=== PATIENT | female | born 1940 ===

== ENCOUNTER 2021-04-17 10:45 | Outpatient (RCR) | payer MEDICARE, SELFPAY ==
[2021-01-17 08:00] VITALS: BMI 39.6
[2021-01-17 08:08] VITALS: BMI 39.6
== END 2021-04-17 23:59 | disposition home or self-care (01) ==
LOC: ANHDMC 10:45
PROVIDERS: PCP Internal Medicine; Visit Provider Internal Medicine
DX: E11.9 Type 2 diabetes mellitus without complications (principal); Z71.3 Dietary counseling and surveillance; Z71.89 Other specified counseling
CPT/HCPCS: 97802; G0108

== ENCOUNTER 2021-07-11 11:30 | Outpatient (RCR) | payer MEDICARE, SELFPAY ==
[2021-04-25 09:36] VITALS: BMI 38.9
[2021-04-25 09:38] VITALS: BMI 38.9
== END 2021-07-11 12:36 | disposition home or self-care (01) ==
LOC: ANHDMC 11:30
PROVIDERS: PCP Internal Medicine; Visit Provider Internal Medicine
DX: E11.9 Type 2 diabetes mellitus without complications (principal); Z71.3 Dietary counseling and surveillance; Z71.89 Other specified counseling
CPT/HCPCS: 97803; G0108

== ENCOUNTER 2023-02-11 14:35 | Observation (INO) | payer MEDICARE, SELFPAY ==
--- NOTE | ~2023-02-11 | XR_ITS ---
EXAMINATION: XR chest 1V portable INDICATION: Weakness TECHNIQUE: Portable AP chest at 1520 hours COMPARISON: None available FINDINGS: There are patchy opacities throughout all lung zones. No pleural effusion or pneumothorax. The cardiomediastinal silhouette is normal. There is osteoarthritis of the shoulders. IMPRESSION: 1. Patchy bilateral airspace opacities, consistent with atelectasis versus pneumonia. Reviewed, dictated and finalized at location B. IMPRESSION: 1. Patchy bilateral airspace opacities, consistent with atelectasis versus pneu monia.
--- NOTE | ~2023-02-11 | CT_ITS ---
EXAMINATION: CT brain wo con INDICATION: Bilateral lower limb weakness COMPARISON: None TECHNIQUE: Standard unenhanced head CT. The dose-length product (DLP) was 605.33 mGy-cm. The mA was a djusted according to patient size. Iterative reconstruction technique was employed. FINDINGS: There is no acute intraparenchymal hemorrhage. No evidence of mass lesion. No evidence of a cute infarction. 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 Areas of prior infarction are also note d in the left frontal and left occipital lobes in the right temporal lobe. There is mild periventricu lar and subcortical hypodensity probably related to small vessel ischemic disease. There is mild prom inence of the sulci and ventricles related to cerebral atrophy. Intracranial calcified cerebral ather osclerosis is noted. There are no extra-axial collections. There is no mass effect or midline shift. Changes in the globes are likely from ocular lens surgery. The visualized sinuses and mastoid air bao ls are well aerated. IMPRESSION: 1. Multiple areas of prior infarction without acute intracranial abnormality. 2. Age related findings. Reviewed, dictated and finalized at location B.
[2023-02-11 14:40] VITALS: BP 168/85; PULSE 68; RESP 18; TEMP 36.6; O2SAT 94
--- NOTE | 2023-02-11 14:42 | ECG_ITS ---
Measurements Intervals [place] Rate: 66 P: 70 TN: 177 QRS: -50 QRSD: 113 T: 74 QT: 429 QTc: 450 Interpretive Statements SINUS RHYTHM LEFT ANTERIOR FASCICULAR BLOCK [QRS AXIS <= -45, QR IN I, RS IN II] LEFT VENTRICULAR HYPERTROPHY AND ST-T CHANGE [VOLTAGE CRITERIA PLUS ST/T ABNORMALITY] ANTEROSEPTAL MYOCARDIAL INFARCTION , OF INDETERMINATE AGE [40+ ms Q WAVE IN V1-V4] ABNORMAL ECG NO PREVIOUS ECG AVAILABLE FOR COMPARISON Electronically Signed On 02-12-2023 14:32:11 CDT by Golden Vidal M.D.
[2023-02-11 14:56] LABS: Basophils Absolute Auto 0.1 K/mm3 (0.0-0.1); Basophils Percent Auto 0.6 % (0.2-1.2); Eosinophils Absolute Auto 0.2 K/mm3 (0-0.3); Eosinophils Percent Auto 1.4 % (0-4.4); Hematocrit 53.4 % (37.0-47.0); Hemoglobin 17.5 g/dL (12.0-15.0); Immature Granulocyte Absolute 0.06 K/mm3 (0.00-0.031); Immature Granulocyte Percent A 0.4 % (0-0.5); Lymphocytes Absolute Auto 1.63 K/mm3 (0.9-3.2); Lymphocytes Percent Auto 11.8 % (18.3-44.2); Mean Corpuscular HGB Conc 32.8 g/dl (32-36); Mean Corpuscular Hemoglobin 30.4 pg (26-34); Mean Corpuscular Volume 92.9 fl (80-100); Mean Platelet Volume 9.9 fl (7.4-10.4); Monocytes Absolute Auto 0.9 K/mm3 (0.1-0.6); Monocytes Percent Auto 6.1 % (2.6-8.5); Neutrophils Absolute Auto 11.1 K/mm3 (1.3-6.7); Neutrophils Percent Auto 79.7 % (45.5-73.1); Platelet Count Result 295 k/mm3 (150-375); Red Blood Count 5.75 M/mm3 (4.2-5.4); Red Cell Distribution Width 13.9 % (11.5-14.5); White Blood Count 13.9 K/mm3 (4.5-10.0)
[2023-02-11 15:05] LABS: Alanine Aminotransferase 20 U/L (6-35); Albumin Level 4.3 g/dL (3.5-5.1); Alkaline Phosphatase 135 U/L (38-126); Anion Gap 8 mmol/L (8-16); Aspartate Amino Transferase 21 U/L (14-36); Bilirubin,Total 0.8 mg/dL (0.2-1.3); Blood Urea Nitrogen 29 mg/dL (7-17); Calcium 9.2 mg/dL (8.4-10.2); Carbon Dioxide 29 mmol/L (22-30); Chloride 101 mmol/L (98-107); Estimated CRCL calculation 35 ml/min; Estimated Glomerular Filt Rate 39; Glucose 353 mg/dL (65-110); Potassium 4.2 mmol/L (3.4-5.0); Sodium 138 mmol/L (137-145)
--- NOTE | 2023-02-11 15:43 | ED.WEAKNESS ---
HPI - Weakness General Chief complaint: Weakness Stated complaint: weakness Time Seen by Provider: 02/11/23 15:22 History of Present Illness HPI Narrative: Patient is an 82-year-old female with a history of hypertension, diabetes presenting with weakness. Patient states that for the last several days she has been weak in both of her legs. States that she is able to stand up with them both of her legs will give out. States that she has had some intermittent left leg numbness as well. Patient lives at home alone and has now had multiple falls. She does not think she has struck in her head or lost consciousness. She complains of bilateral knee pain. She denies difficulty speaking, headaches, vision changes, chest pain, shortness of breath, abdominal pain, nausea or vomiting, diarrhea, dysuria. States that she has had difficulty swallowing fluids for the last week. Related Data Home Medications Medication Instructions Recorded Confirmed dapagliflozin 5 mg tablet (Farxiga) 5 mg PO DAILY 02/11/23 02/11/23 glimepiride 1 mg tablet 1 mg PO DAILY 02/11/23 02/11/23 insulin degludec 100 unit/mL (3 30 unit subcut HS 02/11/23 02/11/23 mL) subcutaneous pen (Tresiba FlexTouch U-100 insulin) insulin lispro 100 unit/mL 10 unit subcut TIDWMEAL 02/11/23 02/11/23 subcutaneous pen (Humalog KwikPen (U-100) Insulin) lisinopril 20 mg tablet 20 mg PO BID 02/11/23 02/12/23 nebivolol 10 mg tablet 10 mg PO DAILY 02/11/23 02/11/23 semaglutide 0.25 mg or 0.5 mg (2 0.25 mg subcut ONCE 02/11/23 02/11/23 mg/1.5 mL) subcutaneous pen injector (Ozempic) simvastatin 20 mg tablet 20 mg PO HS 02/11/23 02/11/23 Allergies Allergy/AdvReac Type Severity Reaction Status Date / Time amlodipine Allergy Unknown Verified 02/11/23 18:15 Review of Systems Review of Systems: All systems reviewed & are unremarkable except as noted in HPI and below [facility] Past Medical History Medical History (Updated 02/14/23 @ 21:51 by Eliz Brand MD) Diabetes mellitus HTN (hypertension), benign Social History Social History Smoking status: Never smoker Second hand tobacco smoke exposure: No Alcohol intake: never Substance use: never Substance use type: does not use Lack of Transportation: No Lack of Food: Never True Current Housing: I Have Housing Concerned About Future Housing: No Difficulty Paying Gas/Electric Bills: No Difficulty Paying for Meds: No Currently Unemployed: No Education: High School Diploma/GED Difficulty w/ Childcare or Family Care: No Spiritual care concerns: No Exam Narrative: GENERAL: Well-appearing, well-nourished, and in no acute distress. HEAD: Normocephalic, atraumatic. EYES: PERRLA and EOMI. ENT: Nares clear, no rhinorrhea or epistaxis. Mucous membranes moist. NECK: Supple. No midline tenderness of cervical, thoracic, or lumbar spine CHEST: Clear to auscultation. No respiratory distress. HEART: Regular rate and rhythm. No murmur heard. Normal peripheral pulses. ABDOMEN: Soft, nontender, nondistended EXTREMITIES: Normal range of motion. No edema. SKIN: Warm, dry, no rash. Superficial abrasions bilateral knees NEURO: No focal deficits. Alert and oriented x3. 5/5 strength in all extremities, no sensory deficits, no facial droop PSYCH: Normal mood and affect. Course Vital Signs Vital signs: Vital Signs Temperature 97.9 F 02/11/23 14:40 Pulse Rate 68 02/11/23 14:40 Respiratory Rate 18 02/11/23 14:40 Blood Pressure 168/85 H 02/11/23 14:40 Pulse Oximetry 94 02/11/23 14:40 Oxygen Delivery Room Air 02/11/23 14:40 Temperature 97.2 F L 02/13/23 14:00 Pulse Rate 70 02/13/23 14:00 Respiratory Rate 18 02/13/23 14:00 Blood Pressure 142/67 H 02/13/23 14:00 Pulse Oximetry 95 02/13/23 14:00 Oxygen Delivery Room Air 02/13/23 08:00 MDM - Weakness MDM Narrative Medical decision making
[2023-02-11 17:36] LABS: Appearance Urine Cloudy (Clear); Bacteria Urine 4+ /hpf; Bilirubin Urine Negative (Negative); Blood Urine Trace (Negative); Color Urine Yellow (Yellow); Glucose Urine UA 3+ mg/dL (Negative); Ketones Urine Negative (Negative); Leukocyte Esterase Ur 1+ LEU/UL (Negative); Need Manual Microscopic Reviewed; Nitrate Urine Negative (Negative); Protein Urine 1+ mg/dL (Negative); RBC Urine 0-2 /hpf (0-2); Specific Grav Ur 1.029 (1.001-1.035); Squamous Epithelial Cell Urine None seen /hpf (Few); Urobilinogen Urine 0.2 mg/dL (<2.0); WBC Urine >100 /hpf
[2023-02-11 17:37] LABS: Add Urine Microscopic? YES
[2023-02-11 17:53] LABS: NT Pro B Type Natriuretic Pept 1090 pg/mL (19.9-100); Troponin I 0.014 ng/mL (0.000-0.034)
[2023-02-11 18:05] LABS: Troponin I < 0.012 ng/mL (0.000-0.034)
[2023-02-11 18:20] LABS: Influenza A QL RT-PCR Negative (Negative); Influenza B QL RT-PCR Negative (Negative); SARS-CoV-2 RNA PCR Negative (Negative)
[2023-02-11 20:42] VITALS: BP 115/99; PULSE 63; RESP 18; O2SAT 96
--- NOTE | 2023-02-11 20:42 | PM.IMHP ---
H&P: HPI History of Present Illness Date/Time: 02/11/23 20:42 Chief Complaint: Generalized weakness Narrative: This is an 82-year-old female with past medical history significant for type 2 diabetes mellitus, insulin dependent, hypertension, dyslipidemia. Patient was brought to the emergency room due to generalized weakness patient denies any fevers, rigors, chills, nausea, vomiting, abdominal pain, pain or burning with urination no cough, no sputum production, no night sweats. Preliminary workup was significant for urinalysis more than 100 wbc's per high-power field, WBC 67204. EXAMINATION: XR chest 1V portable INDICATION: Weakness TECHNIQUE: Portable AP chest at 1520 hours COMPARISON: None available FINDINGS: There are patchy opacities throughout all lung zones. No pleural effusion or pneumothorax. The cardiomediastinal silhouette is normal. There is osteoarthritis of the shoulders. IMPRESSION: 1. Patchy bilateral airspace opacities, consistent with atelectasis versus pneumonia. EXAMINATION: CT brain wo con ? INDICATION: Bilateral lower limb weakness ? COMPARISON: None TECHNIQUE: Standard unenhanced head CT. The dose-length product (DLP) was 605.33 mGy-cm. The mA was adjusted according to patient size. Iterative reconstruction technique was employed. ? FINDINGS: There is no acute intraparenchymal hemorrhage. No evidence of mass lesion. No evidence of acute infarction. 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 Areas of prior infarction are also noted in the left frontal and left occipital lobes in the right temporal lobe. There is mild periventricular and subcortical hypodensity probably related to small vessel ischemic disease. There is mild prominence of the sulci and ventricles related to cerebral atrophy. Intracranial calcified cerebral atherosclerosis is noted. There are no extra-axial collections. There is no mass effect or midline shift. Changes in the globes are likely from ocular lens surgery. The visualized sinuses and mastoid air cells are well aerated. IMPRESSION: 1. Multiple areas of prior infarction without acute intracranial abnormality. 2. Age related findings. Patient has been admitted for further evaluation management and treatment. Review of Systems Review of Systems: Generalized weakness Constitutional: Constitutional: Denies chills, Reports fatigue, Denies fever(s), Reports lethargy, Denies malaise, Denies night sweats, Denies poor appetite and Reports weakness Eyes: Eyes: Denies change in vision ENT: Denies dysphagia and Denies odynophagia Cardiovascular: Cardiovascular: Denies chest pain, Denies leg edema, Denies radiating jaw, neck or arm pain and Denies palpitations Respiratory: Respiratory: Denies chest congestion, Denies cough, Denies excessive phlegm production and Denies dyspnea Gastrointestinal: Gastrointestinal: Denies abdominal pain, Denies dyspepsia, Denies diarrhea, Denies nausea and Denies vomiting Genitourinary: Genitourinary: Denies dysuria Musculoskeletal: Musculoskeletal: Denies back pain, Denies myalgias, Denies joint swelling and Reports muscle weakness Integumentary/Breasts: Skin/Breast: Denies rash Neurologic: Denies syncope, Denies focal weakness and Denies Sensory deficit (Neuro) Psychiatric: Psychiatric: Reports no additional psychiatric complaints and Reports as per HPI Endocrine: Endocrine: Denies cold intolerance, Denies fatigue, Denies flushing, Denies heat intolerance, Denies polyphagia, Denies polydipsia and Denies palpitations Hematologic/Lymphatic: Hematologic/Lymphatic: Reports no additional hematologic/lymphatic complaints and Reports as per HPI Allergic/Immunologic: Allergic/Immunologic: Reports no additional allergic/immunologic complaints and Reports as per HPI [facility] Social History Social History Smoking status: Never smoker Second hand tobacco smoke exposure: No Alcohol intake: never Subst
[2023-02-11 21:20] VITALS: BP 156/73; PULSE 62; RESP 14; TEMP 36.2; O2SAT 94; BMI 37.9
[2023-02-11 22:31] VITALS: BMI 37.8
[2023-02-11 23:15] LABS: Glucose Point of Care 353 mg/dl (65-105)
[2023-02-12] MEDS: INSULIN GLARGINE (*BKC) 100 UNITS/ML 30 UNITS SUB-Q ×2 (01:40→20:22)
[2023-02-12] MEDS: SIMVASTATIN 20 MG TABLET PO ×2 (01:41→20:21)
[2023-02-12 05:52] VITALS: BP 162/76; PULSE 63; RESP 14; TEMP 36.6; O2SAT 92
[2023-02-12 07:43] LABS: Glucose Point of Care 249 mg/dl (65-105)
[2023-02-12 08:06] VITALS: PULSE 66
[2023-02-12] MEDS: NEBIVOLOL HCL 5 MG TABLET 10 MG PO (08:06)
[2023-02-12] MEDS: INSULIN ASPART (*BKC) 100 UNITS/ML 10 UNITS SUB-Q ×3 (08:08→17:10)
[2023-02-12] MEDS: lisinopriL 20 MG TABLET PO (08:08)
[2023-02-12 11:52] LABS: Glucose Point of Care 333 mg/dl (65-105)
[2023-02-12 13:51] VITALS: BP 140/79; PULSE 67; RESP 18; TEMP 36.1; O2SAT 95
--- NOTE | 2023-02-12 15:25 | PM.IMPN ---
Progress Note: A&P Assessment and Plan (1) UTI (urinary tract infection): Code(s): N39.0 - Urinary tract infection, site not specified Status: Acute Assessment and Plan: Started on Rocephin Awake urine culture and identification (2) Generalized weakness: Code(s): R53.1 - Weakness Status: Acute Assessment and Plan: Likely secondary to urinary tract infection CT head with multiple infarcts without acute intracranial abnormality PT OT consult Add aspirin continue on statin check LDL (3) Lung infiltrate: Code(s): R91.8 - Other nonspecific abnormal finding of lung field Status: Acute Assessment and Plan: Patient started on Rocephin and Zithromax Cultures in progress Plan Type 2 diabetes on insulin monitor Accu-Cheks and adjust insulin as needed. Hypertension home medication Hyperlipidemia simvastatin DVT prophylaxis Lovenox Subjective Date/time seen: 02/12/23 15:25 Interval history: Generalized weakness lower legs. States her legs give out numbness of the leg reported recurrent fall UTI afebrile vitals stable. Doing okay. No new complaints chart reviewed Review of Systems Review of Systems: All systems reviewed & are unremarkable except as noted in HPI and below Exam Narrative: GENERAL: Well-appearing, well-nourished, and in no acute distress. HEAD: Normocephalic, atraumatic. EYES: PERRLA and EOMI. ENT: Nares clear, no rhinorrhea or epistaxis.? Mucous membranes moist. NECK: Supple.? No midline tenderness of cervical, thoracic, or lumbar spine CHEST: Clear to auscultation.? No respiratory distress. HEART: Regular rate and rhythm.? No murmur heard.? Normal peripheral pulses. ABDOMEN: Soft, nontender, nondistended EXTREMITIES: Normal range of motion.? No edema. SKIN: Warm, dry, no rash. NEURO: No focal deficits.? Alert and oriented x3. 5/5 strength in all extremities, no sensory deficits, no facial droop PSYCH: Normal mood and affect. Objective Data Vital Signs Vital Signs: Vital Signs - 24 hr 02/11/23 20:42 02/11/23 21:20 02/12/23 05:52 Temperature 97.2 F L 97.9 F Pulse Rate 63 62 63 Respiratory Rate 18 14 14 Blood Pressure 115/99 H 156/73 H 162/76 H Pulse Oximetry 96 94 92 Oxygen Delivery 02/12/23 08:06 02/12/23 10:42 02/12/23 10:20 Temperature Pulse Rate 66 Respiratory Rate Blood Pressure Pulse Oximetry Oxygen Delivery Room Air Room Air 02/12/23 08:00 02/12/23 13:51 Temperature 97.0 F L Pulse Rate 67 Respiratory Rate 18 Blood Pressure 140/79 Pulse Oximetry 95 Oxygen Delivery Room Air Intake/Output Intake/Output: Intake & Output 02/09/23 02/10/23 02/11/23 02/12/23 23:59 23:59 23:59 23:59 Intake Total 300 980 Output Total 600 Balance 300 380 Meds/Results Medications: Active Medications Generic Name Dose Route Start Last Admin Trade Name Freq PRN Reason Stop Dose Admin Dextrose 12.5 gm 02/12/23 07:32 Dextrose 50% 25 Gm/50 Ml Syringe IV PUSH PRN PRN Hypoglycemia Protocol Glucagon 1 mg 02/12/23 07:32 Glucagon For Inj 1 Mg Vial IM PRN PRN Hypoglycemia Protocol Glucose 15 gm 02/12/23 07:32 Glucose Oral Gel 15 Gm Of Glucse In 37.5 Gm Tube PO PRN PRN Hypoglycemia Protocol Dextrose 1,000 mls @ 100 mls/hr 02/12/23 07:32 Dextrose 5% 1,000 Ml IVPB PRN PRN Hypoglycemia Protocol Insulin Aspart 10 units 02/12/23 08:00 02/12/23 12:00 Insulin Aspart (*Bkc) 100 Units/Ml SUB-Q 10 units ACINSULIN YOUSUF Administration Insulin Glargine 30 units 02/11/23 23:05 02/12/23 01:40 Insulin Glargine (*Bkc) 100 Units/Ml SUB-Q 30 units HS YOUSUF Administration Lisinopril 20 mg 02/12/23 09:00 02/12/23 08:08 Lisinopril 20 Mg Tablet PO 20 mg DAILY YOUSUF Administration Nebivolol 10 mg 02/12/23 09:00 02/12/23 08:06 Nebivolol Hcl 5 Mg Tablet PO 10 mg DAILY YOUSUF Administration Simvast
[2023-02-12 16:46] LABS: Glucose Point of Care 218 mg/dl (65-105)
[2023-02-12 19:29] LABS: Hemoglobin A1C 9.4 % (<5.7)
[2023-02-12 20:53] LABS: Glucose Point of Care 261 mg/dl (65-105)
[2023-02-12 21:15] LABS: Glucose Point of Care 250 mg/dl (65-105)
[2023-02-12 21:19] VITALS: BP 152/86; PULSE 63; RESP 20; TEMP 36.3; O2SAT 94
[2023-02-13 05:38] VITALS: BP 146/67; PULSE 56; RESP 18; TEMP 36.2; O2SAT 90
[2023-02-13 06:14] LABS: Basophils Absolute Auto 0.1 K/mm3 (0.0-0.1); Basophils Percent Auto 0.7 % (0.2-1.2); Eosinophils Absolute Auto 0.5 K/mm3 (0-0.3); Eosinophils Percent Auto 4.2 % (0-4.4); Hematocrit 49.2 % (37.0-47.0); Hemoglobin 15.5 g/dL (12.0-15.0); Immature Granulocyte Absolute 0.05 K/mm3 (0.00-0.031); Immature Granulocyte Percent A 0.4 % (0-0.5); Lymphocytes Absolute Auto 2.43 K/mm3 (0.9-3.2); Lymphocytes Percent Auto 21.1 % (18.3-44.2); Mean Corpuscular HGB Conc 31.5 g/dl (32-36); Mean Corpuscular Hemoglobin 29.5 pg (26-34); Mean Corpuscular Volume 93.7 fl (80-100); Mean Platelet Volume 9.7 fl (7.4-10.4); Monocytes Absolute Auto 0.8 K/mm3 (0.1-0.6); Monocytes Percent Auto 6.9 % (2.6-8.5); Neutrophils Absolute Auto 7.7 K/mm3 (1.3-6.7); Neutrophils Percent Auto 66.7 % (45.5-73.1); Platelet Count Result 251 k/mm3 (150-375); Red Blood Count 5.25 M/mm3 (4.2-5.4); Red Cell Distribution Width 13.8 % (11.5-14.5); White Blood Count 11.5 K/mm3 (4.5-10.0)
[2023-02-13 06:22] LABS: Alanine Aminotransferase 18 U/L (6-35); Albumin Level 3.6 g/dL (3.5-5.1); Alkaline Phosphatase 107 U/L (38-126); Anion Gap 6 mmol/L (8-16); Aspartate Amino Transferase 19 U/L (14-36); Bilirubin,Total 0.8 mg/dL (0.2-1.3); Blood Urea Nitrogen 39 mg/dL (7-17); Calcium 8.3 mg/dL (8.4-10.2); Carbon Dioxide 28 mmol/L (22-30); Chloride 103 mmol/L (98-107); Cholesterol 158 mg/dL (0-200); Estimated CRCL calculation 33 ml/min; Estimated Glomerular Filt Rate 36; Glucose 162 mg/dL (65-110); HDL Direct 42 mg/dL; Magnesium 2.4 mg/dL (1.6-2.3); Sodium 137 mmol/L (137-145); Triglycerides 108 mg/dL (<150)
[2023-02-13 06:33] LABS: LDL Cholesterol Direct 83 mg/dL
[2023-02-13 07:51] LABS: Glucose Point of Care 172 mg/dl (65-105)
[2023-02-13 08:23] VITALS: PULSE 66
[2023-02-13] MEDS: ENOXAPARIN 40 MG/0.4 ML SYRINGE SUB-Q (08:23)
[2023-02-13] MEDS: lisinopriL 20 MG TABLET PO (08:23)
[2023-02-13] MEDS: NEBIVOLOL HCL 5 MG TABLET 10 MG PO (08:23)
[2023-02-13] MEDS: INSULIN ASPART (*BKC) 100 UNITS/ML 10 UNITS SUB-Q ×2 (08:25→12:15)
[2023-02-13] MEDS: ASPIRIN 81 MG ENTERIC TABLET PO (08:25)
[2023-02-13 12:15] LABS: Glucose Point of Care 205 mg/dl (65-105)
--- NOTE | 2023-02-13 13:51 | PM.DS ---
DS: Admitting Diagnosis Discharge Date 02/13/23 Admitting Diagnosis weakness DS: Discharge Diagnosis Discharge Diagnosis (1) UTI (urinary tract infection): Code(s): N39.0 - Urinary tract infection, site not specified Status: Acute (2) Generalized weakness: Code(s): R53.1 - Weakness Status: Acute (3) Lung infiltrate: Code(s): R91.8 - Other nonspecific abnormal finding of lung field Status: Acute (4) Diabetes mellitus: Code(s): E11.9 - Type 2 diabetes mellitus without complications Status: Acute (5) HTN (hypertension), benign: Code(s): I10 - Essential (primary) hypertension Status: Acute (6) Renal insufficiency: Code(s): N28.9 - Disorder of kidney and ureter, unspecified Status: Acute DS: Summary Hospital Course Reason for hospitalization: 82yo female with DM and HTN here for weakness. Please see H&P for details. Hospital Course: On admission, EKG showed normal sinus rhythm left anterior fascicular block and LVH. There was some evidence of age indeterminate anteroseptal [place] chest x-ray showed patchy bilateral airspace opacities atelectasis versus pneumonia. Head CT showed multiple areas of prior infarct without acute intracranial abnormalities. She is currently on aspirin and statin. White count was 14 K with a hemoglobin of 17. No baseline to compare but her BUN was 29 creatinine 1.3. A repeat creatinine with about the same at 1.4. It was suspected that she had chronic kidney disease. Glucose was 353. Her A1c was 9.4. LFTs were normal. Troponin was negative x2. BNP was a 1090. TSH was normal. Urinalysis was consistent with UTI. Influenza and COVID swab was negative. She was started on Rocephin and azithromycin. Urine culture did return positive but the final ID pending. Patient is clinically improved. She continued to have a nonproductive cough. Her white count trended downward. Hemoglobin improved 15. LDL 83. She worked with PT and OT. She overall did well and was able to be discharged to rehab facility on 02/13/2023. Status at Discharge Cognitive/behavioral status at discharge: Stable Time Spent with Patient Time attestation: Total time spent providing and/or coordinating discharge services: 35 minutes Time spent: Greater than 30 minutes Exam Narrative: AF 97.2 142/67 70 18 95% ra Gen - NARD Chest - clear distant BS. Nml RR CV - RRR S1/S2 Abd - Soft, NT/ND, Positive BS Ext - No pedal edema. Normal ROM to the left ankle. No redness or significant pain with ROM Neuro - Alert and oriented. Nonfocal exam. Psych - Nml mood and affect Skin - Warm and dry DS: Data Data Completed and Pending Labs on day of discharge: Labs from last 24 hours 02/13/23 02/13/23 02/13/23 12:01 07:36 05:44 WBC 11.5 H RBC 5.25 Hgb 15.5 H Hct 49.2 H MCV 93.7 MCH 29.5 MCHC 31.5 L RDW 13.8 Plt Count 251 MPV 9.7 Immature Gran % (Auto) 0.4 Neut % (Auto) 66.7 Lymph % (Auto) 21.1 [place] % (Auto) 6.9 Eos % (Auto) 4.2 Baso % (Auto) 0.7 Lymph # (Auto) 2.43 [place] # (Auto) 0.8 H Eos # (Auto) 0.5 H Baso # (Auto) 0.1 Abs Immat Gran (auto) 0.05 H Absolute Neuts (auto) 7.7 H Absolute Nucleated RBC 0.0 Nucleated RBC % 0.0 Sodium 137 Potassium 4.0 Chloride 103 Carbon Dioxide 28 Anion Gap 6 L BUN 39 H D Creatinine 1.40 H Estim Creat Clear Calc 33 Estimated GFR 36 L Glucose 162 H POC Capillary Glucose 205 H 172 H Hemoglobin A1c Calcium 8.3 L Magnesium 2.4 H Total Bilirubin 0.8 AST 19 ALT 18 Alkaline Phosphatase 107 Total Protein 7.0 Albumin 3.6 Triglycerides 108 Cholesterol 158 LDL Cholesterol Direct 83 HDL Direct 42 TSH (Reflex) 2.140 02/12/23 02/12/23 02/12/23 20:55 20:20 17:08 WBC RBC Hgb Hct MCV MCH MCHC RDW Plt Count
[2023-02-13 14:00] VITALS: BP 142/67; PULSE 70; RESP 18; TEMP 36.2; O2SAT 95
[2023-02-13 15:12] LABS: EDCOVIDSCREEN Negative (Negative)
== END 2023-02-13 15:30 ==
LOC: ANHED 16:16 → ANH3MEDSUR 02-12 13:02
PROVIDERS: Internal Medicine; Admitting Provider Internal Medicine; Emergency Provider Emergency Medicine; PCP Internal Medicine; Visit Provider Internal Medicine
DX: N39.0 Urinary tract infection, site not specified (principal); B96.20 Unspecified Escherichia coli [E. coli] as the cause of diseases classified elsewhere; R53.1 Weakness; R91.8 Other nonspecific abnormal finding of lung field; N28.9 Disorder of kidney and ureter, unspecified; R20.0 Anesthesia of skin; R29.6 Repeated falls; E11.9 Type 2 diabetes mellitus without complications; I10 Essential (primary) hypertension; Z20.822 Contact with and (suspected) exposure to COVID-19; M25.562 Pain in left knee; M25.561 Pain in right knee; R94.31 Abnormal electrocardiogram [ECG] [EKG]; R13.10 Dysphagia, unspecified; Z79.84 Long term (current) use of oral hypoglycemic drugs; Z79.4 Long term (current) use of insulin; Z79.899 Other long term (current) drug therapy; Z86.73 Personal history of transient ischemic attack (TIA), and cerebral infarction without residual deficits
CPT/HCPCS: 36415; 70450; 71045; 80053; 80061; 81001; 82948; 83036; 83735; 83880; 84443; 84484; 85025; 87077; 87086; 87186; 87426; 87636; 93005; 96365; 96366; 96368; 96372; 97116; 97162; 97165; 97530; 99285; A9270; C9803; G0378; J0456; J0696; J1650; J1815